=== PATIENT | female | born 2005 | race Caucasian/White ===

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

== ENCOUNTER 2024-12-30 22:56 | Emergency (ER) | payer OTHER ==
[2024-12-30 23:05] VITALS: BP 127/84; PULSE 82; RESP 18; TEMP 98.4; BMI 23.6
[2024-12-30] MEDS ORDERED: ACETAMINOPHEN 325 MG TABLET (FP) ONE (23:36)
[2024-12-30] MEDS: ACETAMINOPHEN 325 MG TABLET (FP) PO ONE (23:39)
[2024-12-30 23:58] LABS: ABSOLUTE IMMATURE GRANULOCYTES 0.02 x10^3/uL (0.0-0.031); BASOPHILS # 0.06 x10^3/uL (0.01-0.08); EOSINOPHIL % 3.8 % (0.7-5.8); EOSINOPHILS # 0.32 x10^3/uL (0.04-0.36); MCHC 29.4 g/dl (32.2-35.5); MEAN CELL VOLUME 73.8 fl (79.4-94.8); MEAN PLT VOLUME 10.7 fl (9.4-12.3); MONOCYTE # 0.71 x10^3/uL (0.24-0.86); MONOCYTE % 8.4 % (4.7-12.5); RDW 15.8 % (12.0-16.2)
[2024-12-31 00:03] LABS: EPI CELLS 8 /uL (0-25.1); HYALINE CASTS 0 /uL (0-3.1); URINE APPEARANCE CLEAR; URINE BACTERIA 10 /uL (0-1359); URINE BILIRUBIN NEGATIVE (NEGATIVE); URINE COLOR YELLOW; URINE GLUCOSE (UA) NEGATIVE (NEGATIVE); URINE KETONE NEGATIVE (NEGATIVE); URINE LEUK ESTERASE NEGATIVE (NEGATIVE); URINE NITRITE NEGATIVE (NEGATIVE); URINE PROTEIN NEGATIVE (NEGATIVE); URINE RBC 126 /uL (0-23.9); URINE UROBILINOGEN 0.2 mg/dL (0.2-1.0); URINE WBC 17 /uL (0-25.8)
[2024-12-31 00:16] LABS: HCG,QUALITATIVE URINE Negative
[2024-12-31] MEDS ORDERED: KETOROLAC TROMETHAMINE 15 MG/ML VIAL ONE (00:43)
[2024-12-31] MEDS: KETOROLAC TROMETHAMINE 30 MG/1 ML VIAL IVPUSH ONE (00:47)
[2024-12-31 00:53] LABS: CO2 26.0 mmol/L (21-32); GLUCOSE,RANDOM 106.0 mg/dL (74-106)
[2024-12-31 00:56] LABS: CREATININE 0.8 mg/dL (0.55-1.3); SGOT/AST 10.0 U/L (15-37); SGPT/ALT 15.0 U/L (13-61)
[2024-12-31 00:58] LABS: TOT PROT 7.4 g/dl (6.4-8.2)
[2024-12-31 00:59] LABS: ALK PHOS 88.0 U/L (45-117)
== END 2024-12-31 01:19 | disposition home or self-care (01) ==
LOC: JER 22:56
PROC: 3E0333Z Introduction of Anti-inflammatory into Peripheral Vein, Percutaneous Approach (ICD-10-PCS; principal; 2024-12-30)
DX: R10.84 Generalized abdominal pain (principal)
CPT/HCPCS: 36415; 80053; 81003; 83690; 84703; 85025; 87086; 99284-25